=== PATIENT | female | born 1970 | race Caucasian/White ===

== ENCOUNTER 2021-02-19 09:36 | Emergency (ER) | payer OTHER ==
[~2021-02-19] VITALS: Ht 162.6 cm; Wt 70.0 kg
[2021-02-19] MEDS ORDERED: IPRATRPIUM/ALBUTEROL 0.5/2.5MG 3 ML NEBU. NEB ONE (10:15)
--- NOTE | 2021-02-19 10:15 | PHYS DOC ---
Past History Past Surgical History: Cancer Surgery Alcohol Use: None General Adult EDM: Chief Complaint: SHORTNESS OF BREATH HPI: HPI: Patient is a 50-year-old female coming in for shortness of breath. Patient states she has had a cold for the past 6 weeks that started as nasal congestion and sinus pain that now feels like it is down into her chest and feels a rattling in the substernal area, has a cough that is occasionally productive. States she had had fevers 6 months ago. Is not been able to see her primary care, but has an appointment in 2 days. States she is back to use her inhaler couple times a day for her asthma. States that she normally does use her inhaler as needed for seasonal allergies. No GI complaints. Has had her [place] and influenza vaccine Review of Systems: Review of Systems: All other systems within normal limits except for as noted in the HPI Allergies: Allergies: Allergies Coded Allergies Type Severity Reaction Last Updated Verified Penicillins Allergy Severe seizures 02/19/21 Yes Physical Exam: PE: Constitutional: Well developed, well nourished, no acute distress, non-toxic appearance. [] HENT: Normocephalic, atraumatic, bilateral external ears normal, nose normal. [] Eyes: PERRLA, conjunctiva normal, no discharge. [] Neck: No rigidity, supple, no stridor. [] Cardiovascular: Regular rate and rhythm, brisk cap refill [] Lungs & Thorax: Non labored symmetric respirations, no tachypnea or respiratory distress [] Abdomen: Soft, nondistended. Skin: Warm, dry, no erythema, no rash. [] Back: Unremarkable Extremities: No deformities, range of motion grossly intact, no lower extremity edema [] Neurologic: Alert and oriented X 3, no focal deficits noted. [] Psychologic: Affect normal, judgement normal, mood normal. [] Current Patient Data: Vital Signs: Vital Signs Date Time Temp Pulse Resp B/P (MAP) Pulse Ox O2 Delivery O2 Flow Rate FiO2 02/19/21 09:49 98.1 96 24 113/69 (84) 100 Room Air EKG: EKG: [] Radiology/Procedures: Radiology/Procedures: [address] [address] IMAGING REPORT Signed PATIENT: TREVA HERNANDEZ ACCOUNT: [id number] : 1970 LOCATION: ER AGE: 50 SEX: F EXAM STATUS: REG ER ORD. PHYSICIAN: CHAI CANTRELL MD REASON: cough PROCEDURE: CHEST PA & LATERAL EXAMINATION: Chest radiograph. VIEWS: Frontal and lateral views of the chest COMPARISON: None INDICATION:50 years, Female, cough. FINDINGS: Normal cardiomediastinal silhouette. Patchy right lower lobe opacities better appreciated on the lateral projection. No pleural effusion or pneumothorax. No acute osseous process. IMPRESSION: Acute right lower lobe opacities suspicious for infiltrates, less likely atelectasis. Recommend follow-up to resolution. Electronically signed by: Flavio Gonzalez DO (02/19/2021 12:24 PM) [id number] DICTATED AND SIGNED BY: FLAVIO GONZALEZ DO DATE: 02/19/21 1223 CC: CHAI CANTRELL MD; MEGAN HARKINS ~MTH0 0 [] Heart Score: C/O Chest Pain: No Risk Factors: Risk Factors: DM, Current or recent (<one month) smoker, HTN, HLP, family history of CAD, obesity. Risk Scores: Score 0 - 3: 2.5% MACE over next 6 weeks - Discharge Home Score 4 - 6: 20.3% MACE over next 6 weeks - Admit for Clinical Observation Score 7 - 10: 72.7% MACE over next 6 weeks - Early Invasive Strategies Course & Med Decision Making: Course & Med Decision Making Pertinent Labs and Imaging studies reviewed. (See chart for details) [] Dragon Disclaimer: Dragon Disclaimer: This electronic medical record was generated, in whole or in part, using a voice recognition dictation system. Departure Departure: Impression: Primary Impression: Pneumonia Disposition: HOME / SELF CARE / HOMELESS Condition: STABLE Referrals: MEGAN HARKINS (PCP) Patient Instructions: Pneumonia, Adult Scripts Prednisone (PREDNISONE) 50 Mg Tablet 1 TAB PO DAILY for steroid for 5 Days, #5 TAB Prov: CHAI CANTRELL MD 02/19/21 Doxycycline Hyclate (DOXYCYCLINE HYCLATE) 100 Mg Tablet 1 TAB PO BID for antibiotic for 7 Days, #14 TAB Prov: CHAI CANTRELL MD 02/19/21 Benzonatate (BENZONATATE) 200 Mg Capsule 1 CAP PO PRN TID PRN for cough for 7 Days, #21 CAP 0 Refills Prov: CHAI CANTRELL MD 02/19/21 CHAI CANTRELL MD Feb 19, 2021 10:15
[2021-02-19] MEDS ORDERED: LORazepam 1 MG TABLET PO PRN (11:00)
[2021-02-19 11:26] LABS: INFLUENZA A PATIENT NEGATIVE (NEGATIVE); INFLUENZA B PATIENT NEGATIVE (NEGATIVE)
--- NOTE | 2021-02-19 12:27 | RAD ---
EXAMINATION: Chest radiograph. VIEWS: Frontal and lateral views of the chest COMPARISON: None INDICATION:50 years, Female, cough. FINDINGS: Normal cardiomediastinal silhouette. Patchy right lower lobe opacities better appreciated on the late ral projection. No pleural effusion or pneumothorax. No acute osseous process. IMPRESSION: Acute right lower lobe opacities suspicious for infiltrates, less likely atelectasis. Recommend follo w-up to resolution. Electronically signed by: Wilfrido Gonzalez DO (02/19/2021 12:24 PM) [id number]
[2021-02-19] MEDS ORDERED: DOXY100T PO (12:33)
[2021-02-19] MEDS ORDERED: BENZ200C47 PO (12:33)
[2021-02-19] MEDS ORDERED: PRED50TA PO (12:33)
[2021-02-19 13:01] VITALS: BP 134/71
== END 2021-02-19 13:02 | disposition home or self-care (01) ==
LOC: ER 09:36
DX: J18.9 Pneumonia, unspecified organism (principal); Z20.822 Contact with and (suspected) exposure to COVID-19; Z88.0 Allergy status to penicillin
CPT/HCPCS: 71046; 87426; 87804; 94640; 99284; C9803; U0003